=== PATIENT | male | born 1955 | race Caucasian/White ===

== ENCOUNTER → 2018-12-23 | Outpatient (CLI) | payer BC ==
--- NOTE | 2018-12-23 11:10 | PCVCIMAG ---
APPROVED REPORT Study performed: 12/23/2018 09:49:37 EXAM: Comprehensive 2D, Doppler, and color-flow Echocardiogram Patient Location: Echo lab Status: routine BSA: 2.13 HR: 53 bpmBP: 132/84 mmHg Rhythm: Bradycardia Other Information Study Quality: Adequate Indications Murmur Bradycardia 2D Dimensions IVSd: 10.07 (7-11mm) LVDd: 58.75 mm PWd: 10.52 (7-11mm)Ascending Ao: 40.61 (22-36mm) LVDs: 44.75 (25-40mm) Left Atrium: 38.61 (27-40mm) Aortic Root: 35.02 mm LV Single Plane 4CH: 57.93 % LV Single Plane 2CH: 71.80 % Biplane EF: 66.0 % Volumes Left Atrial Volume (Systole) Single Plane 4CH: 72.37 mLSingle Plane 2CH: 80.92 mL LA ESV Index: 37.00 mL/m2 Aortic Valve AoV Peak Deon.: 1.55 m/s AO Peak Gr.: 9.61 mmHgLVOT Max P.68 mmHg LVOT Max V: 1.08 m/s Mitral Valve E/A Ratio: 0.8 MV Decel. Time: 252.07 ms MV E Max Deon.: 0.39 m/s MV A Deon.: 0.49 m/s IVRT: 134.95 ms Pulmonary Valve PV Peak Deon.: 1.00 m/sPV Peak Gr.: 4.03 mmHg Pulmonary Vein P Vein S: 0.34 m/sP Vein A: 0.31 m/s P Vein D: 0.51 m/sP Vein A Dur.: 175.3 msec P Vein S/D Ratio: 0.67 Tricuspid Valve TR Peak Deon.: 2.52 m/s TR Peak Gr.: 25.43 mmHg TV Vmax: 0.44 m/s Left Ventricle The left ventricle is normal size. There is normal LV segmental wall motion. There is normal left ventricular wall thickness. Left ventricular systolic function is normal. The left ventricular ejection fraction is within the normal range. LVEF is 55-60%. Grade I - abnormal relaxation pattern. Right Ventricle The right ventricle is normal size. The right ventricular systolic function is normal. Atria Left atrium is mildly dilated. Right atrium is mildly dilated. Aortic Valve The aortic valve is normal in structure. No aortic regurgitation is present. There is no aortic valvular stenosis. Mitral Valve The mitral valve is normal in structure. Mild mitral regurgitation. No evidence of mitral valve stenosis. Tricuspid Valve The tricuspid valve is normal in structure. Mild tricuspid regurgitation with PAP of 32 mmHg. Pulmonic Valve The pulmonary valve is normal in structure. Mild pulmonic regurgitation. Great Vessels The aortic root is normal in size. The ascending aorta is mildly dilated to 4.1 cm. IVC is normal in size and collapses >50% with inspiration. Pericardium There is no pericardial effusion. There is no pleural effusion. <Conclusion> The left ventricle is normal size. There is normal left ventricular wall thickness. Left ventricular systolic function is normal. Grade I - abnormal relaxation pattern. The right ventricle is normal size. Left atrium is mildly dilated. Right atrium is mildly dilated. The aortic valve is normal in structure. Mild mitral regurgitation. Mild tricuspid regurgitation with PAP of 32 mmHg. The ascending aorta is mildly dilated to 4.1 cm.
--- NOTE | 2018-12-23 11:13 | PCVCIMAG ---
APPROVED REPORT Study performed: 12/23/2018 10:22:35 Exam: Stress Echocardiogram Indication: bradycardia, abn ekg, murmur Patient Location: Echo lab Stress Nurse: Justina Mcmahon RN Status: routine Ht: 5 ft 11 in HR: 53 bpm BP: 132/84 mmHg Rhythm: Bradycardia Procedure The patient underwent an Exercise Stress Test using the [place] Protocol. Blood pressure, heart rate, and EKG were monitored. An Echocardiogram was performed by metallurgical or materials technician in four stages in quad fashion. At peak stress, four selected images were obtained and placed side by side with resting images for comparison. Stress Test Details Stress Test: Exercise stress testing was performed using a [place] protocol. HR Resting HR: 53 bpmMax Heart Rate (APMHR): 157 bpm Max HR Achieved: 139 bpmTarget HR (85% APMHR): 133 bpm % of APMHR: 88 Recovery HR: 78 bpm HR response to stress: Normal HR response to stress BP Resting BP: 132/84 mmHg Max BP: 180/72 mmHg Recovery BP: 144/80 mmHg BP response to stress: Normal blood pressure response to stress. ECG Resting ECG: Sinus Rhythm Stress ECG: Sinus Rhythm ST Change: Non-ischemic Arrhythmia: occasional isolated PVCs and rare couplet PVCs Recovery ECG: Sinus Rhythm Recovery ST Change: Normal Recovery Arrhythmia: None Clinical Reason for Termination: Maximal effort Stress Symptoms: Dyspnea Exercise duration: 12 min 52 sec Highest Stage Achieved: Stage 5: 5.0 mph at 18% grade. Exercise capacity: 16.5 METs Overall Exercise Capacity for Age: Excellent Scale: Active Angina Score: None Pre-Stress Echo The resting Echocardiogram showed normal left ventricular contractility with an estimated Ejection Fraction of about 55-60%. Normal wall motion in all segments on baseline images. Post-Stress Echo The stress Echocardiogram showed normal left ventricular contractility with an estimated Ejection Fraction of about 65%. Normal augmentation of wall motion in all segments on post stress images. Clinical No clinical or ECG evidence for ischemia. Conclusion Clinical Response: Non-ischemic Exercise Capacity: Superior Stress ECG Response: Non-ischemic Stress Echo Images: Non-ischemic The left ventricle is normal in size and wall thickness in both the rest and stress images. Other Information Study Quality: Adequate <Conclusion> The left ventricle is normal in size and wall thickness in both the rest and stress images.
== END | disposition home or self-care (01) ==
LOC: PCVCIMAG 09:38
PROVIDERS: ATTEND Internal Medicine Cardiovascular Disease
DX: I08.1 Rheumatic disorders of both mitral and tricuspid valves (principal); R01.1 Cardiac murmur, unspecified; R00.1 Bradycardia, unspecified; R94.31 Abnormal electrocardiogram [ECG] [EKG]
CPT/HCPCS: 93306; 93351